=== PATIENT | female | born 1965 | race Caucasian/White ===

== ENCOUNTER → 2023-11-29 14:02 | Outpatient (REF) | payer BC, SELFPAY | LOC: RCS 14:02 | PROVIDERS: ATTENDING PHYSICIAN Student in an Organized Health Care Education/Training Program; FAMILY PHYSICIAN Nurse Practitioner Family | DX: R07.89 Other chest pain (principal) | CPT/HCPCS: 93017; 93350 ==

== ENCOUNTER 2024-10-22 06:16 | Day surgery (SDC) | payer BC, SELFPAY | END 2024-10-22 15:16 | disposition home or self-care (01) | LOC: GI 06:16 | PROVIDERS: ATTENDING PHYSICIAN Surgery | DX: K62.5 Hemorrhage of anus and rectum (principal); K64.9 Unspecified hemorrhoids; D12.8 Benign neoplasm of rectum | CPT/HCPCS: 45380; 88305 ==